=== PATIENT | male | born 1970 | race Caucasian/White ===

== ENCOUNTER 2020-09-07 14:04 | Emergency (ER) | payer OTHER ==
[~2020-09-07] VITALS: Ht 170.2 cm; Wt 90.7 kg
[2020-09-07] MEDS ORDERED: ALBUTEROL SULFATE 8 GM HFA.AER.AD IH PRN (14:45)
[2020-09-07] MEDS ORDERED: ACETAMINOPHEN 325 MG TABLET PO ONE (14:45)
[2020-09-07] MEDS ORDERED: ACETAMINOPHEN 325 MG TABLET ONE (14:59)
--- NOTE | 2020-09-07 16:58 | NUR ---
PT IMPROVED AFTER VENTOLIN IH TX - DISCHARGE INSTRUCTIONS RENDERED PER MD ORDER.
[2020-09-07 17:00] VITALS: BP 128/84
== END 2020-09-07 17:01 | disposition home or self-care (01) ==
LOC: ER 14:04
DX: B34.9 Viral infection, unspecified (principal); R05 Cough; Z20.822 Contact with and (suspected) exposure to COVID-19
CPT/HCPCS: 71046; A4663; J3535